=== PATIENT | male | born 1975 | race Hispanic/Latino ===

== ENCOUNTER → 2025-03-04 | Day surgery (SDC) | payer OTHER ==
[~2025-03-04] MED LIST: ASPIRIN81 MG PO; BENAZEPRIL HCL10 MG PO; CRESTOR40 MG PO; FENTANYL CITRATE/PF 100MCG/2 ML INJ ONE; LIDOCAINE HCL 2% LOCAL INJ 5 ML SDV VIAL INJ ONE; METFORMIN HCL500 MG PO; MIDAZOLAM HCL 2 MG/2 ML VIAL ONE; PHENYLEPHRINE HCL 1% 10 MG/ML VIAL ONE; PROPOFOL IV EMULSION 10 MG/ML 20 ML VIAL ONE; PROPOFOL IV EMULSION 50 ML IV ONE; RYBELSUS3 MG PO
[2025-03-04] MEDS: LACTATED RINGER'S 1,000 ML ONE (07:29)
[2025-03-04 10:13] VITALS: BP 121/71; PULSE 76; RESP 18; O2SAT 98
== END | disposition home or self-care (01) ==
LOC: OR 06:13
PROVIDERS: ATTEND Internal Medicine Gastroenterology
DX: K21.9 Gastro-esophageal reflux disease without esophagitis (principal); D12.0 Benign neoplasm of cecum; D12.2 Benign neoplasm of ascending colon; K29.50 Unspecified chronic gastritis without bleeding; K22.89 Other specified disease of esophagus; K20.90 Esophagitis, unspecified without bleeding; R19.7 Diarrhea, unspecified; K64.8 Other hemorrhoids; E11.9 Type 2 diabetes mellitus without complications; I10 Essential (primary) hypertension; E78.5 Hyperlipidemia, unspecified; F17.200 Nicotine dependence, unspecified, uncomplicated; Z01.810 Encounter for preprocedural cardiovascular examination; Z79.82 Long term (current) use of aspirin; Z79.84 Long term (current) use of oral hypoglycemic drugs; Z79.899 Other long term (current) drug therapy
CPT/HCPCS: 36415; 43239; 45385; 82948; 93005; J2003; J2371; J2470; J2704 ×2; J3010; J7121; 45378; J2250